=== PATIENT | female | born 1960 | race Caucasian/White ===

== ENCOUNTER → 2020-10-07 | Outpatient (CLI) | payer MEDICARE ==
--- NOTE | 2020-10-07 10:38 | XR ---
EXAMINATION TYPE: XR chest 2V DATE OF EXAM: 10/07/2020 COMPARISON: NONE HISTORY: Hypotension and shortness of breath. TECHNIQUE: Frontal and lateral views of the chest are obtained. FINDINGS: There is no focal air space opacity, pleural effusion, or pneumothorax seen. The cardiac silhouette size is within normal limits with atherosclerotic change in the aortic knob. The osseous structures are intact. Cholecystectomy clips noted on lateral view. IMPRESSION: No acute cardiopulmonary process.
== END | disposition home or self-care (01) ==
LOC: RADXRMAIN 10:21
PROVIDERS: ATTEND Family Medicine
DX: R06.09 Other forms of dyspnea (principal)
CPT/HCPCS: 71046

== ENCOUNTER → 2020-11-22 | Outpatient (CLI) | payer MEDICARE ==
--- NOTE | 2020-11-22 19:05 | ECHOF ---
Referral Reason:I10 Hypertension MEASUREMENTS -------- HEIGHT: 160.0 cm WEIGHT: 81.6 kg BP: RVIDd: 3.3 cm (< 3.3) IVSd: 1.7 cm (0.6 - 1.1) LVIDd: 3.8 cm (3.9 - 5.3) LVPWd: 1.7 cm (0.6 - 1.1) IVSs: 1.9 cm LVIDs: 2.6 cm LVPWs: 1.5 cm LAESV Index (A-L): 17.49 ml/m Ao Diam: 2.7 cm (2.0 - 3.7) AV Cusp: 1.7 cm (1.5 - 2.6) LA Diam: 4.2 cm (2.7 - 3.8) MV E Mikey: 0.78 m/s MV DecT: 237 ms MV A Mikey: 1.08 m/s MV E/A Ratio: 0.72 FINDINGS -------- Sinus rhythm. This was a technically adequate study. The left ventricular size is normal. There is severe concentric left ventricular hypertrophy. Ove rall left ventricular systolic function is normal with, an EF between 55 - 60 %. The diastolic fill ing pattern is normal for the age of the patient 16.22. The right ventricle is mildly enlarged. Normal LA size by volume 22+/-6 ml/m2. The right atrial size is normal. Interatrial and interventricular septum intact. The aortic valve is trileaflet and appears structurally normal. There is mild aortic regurgitation. The mitral valve is normal. There is trace to mild mitral regurgitation. The tricuspid valve appears structurally normal. Mild tricuspid regurgitation present. Unable to estimate RVSP due to inadequate TR jet spectral doppler profile. There is no pulmonic regurgitation present. The aortic root size is normal. IVC Not well visulized. There is no pericardial effusion. CONCLUSIONS -------- 1. There is severe concentric left ventricular hypertrophy. 2. Overall left ventricular systolic function is normal with, an EF between 55 - 60 %. 3. The right ventricle is mildly enlarged. 4. Normal LA size by volume 22+/-6 ml/m2. 5. There is mild aortic regurgitation. 6. There is trace to mild mitral regurgitation. 7. Mild tricuspid regurgitation present. 8. There is no pericardial effusion. DIESEL TRACTOR OPERATOR: Joyce Hernández RDCS
== END ==
LOC: RADECHMAIN 13:45
PROVIDERS: ATTEND Family Medicine
DX: I08.3 Combined rheumatic disorders of mitral, aortic and tricuspid valves (principal)
CPT/HCPCS: 93306

== ENCOUNTER → 2021-04-27 | Outpatient (CLI) | payer BC ==
[2021-04-27 16:38] LABS: HCT 37.6 % (34.0-46.0); HGB 12.9 gm/dL (11.4-16.0); MCH 32.3 pg (25.0-35.0); MCHC 34.2 g/dL (31.0-37.0); MCV 94.4 fL (80.0-100.0); Mean Platelet Volume 7.7; Platelet Count 241 k/uL (150-450); RBC 3.99 m/uL (3.80-5.40); RDW 14.2 % (11.5-15.5); WBC 8.9 k/uL (3.8-10.6)
[2021-04-27 16:46] LABS: Potassium 3.7 mmol/L (3.5-5.1)
== END | disposition home or self-care (01) ==
LOC: LABPAT 15:21
PROVIDERS: ATTEND Internal Medicine Clinical Cardiac Electrophysiology
DX: Z01.812 Encounter for preprocedural laboratory examination (principal); I42.2 Other hypertrophic cardiomyopathy
CPT/HCPCS: 80051; 82565; 84520; 85027

== ENCOUNTER 2021-05-04 13:57 | Day surgery (SDC) | payer MEDICARE ==
[2021-05-01 14:57] VITALS: BMI 30.1
[~2021-05-04 13:57] MED LIST: HYDROmorphone 0.5 MG/0.5 ML SYRINGE IVP PRN; MIDAZOLAM 2 MG/2 ML VIAL IV PRN
[2021-05-04] MEDS: SODIUM CHLORIDE 0.9% 1,000 ML IV SCH ×2 (14:21→18:15)
[2021-05-04] MEDS ORDERED: MIDAZOLAM 2 MG/2 ML VIAL ONE (15:38)
[2021-05-04] MEDS ORDERED: FUROSEMIDE 10 MG/ML 10 ML VIAL ONE (15:38)
[2021-05-04] MEDS ORDERED: PROPOFOL 10 MG/ML 20 ML VIAL IV ONE (15:38)
[2021-05-04] MEDS ORDERED: fentaNYL (PF) 50 MCG/ML 2 ML AMP ONE (15:38)
[2021-05-04] MEDS ORDERED: ACETAMINOPHEN TAB 325 MG TAB PO PRN (15:54)
[2021-05-04] MEDS ORDERED: HYDROcodone/APAP 5-325MG 1 EACH TAB PO PRN (15:54)
[2021-05-04] MEDS ORDERED: IOPAMIDOL-370 50ML BTL INJ ONE (15:55)
[2021-05-04] MEDS: ceFAZolin 1 GM in SODIUM CHLORIDE 0.9% 250 ML IRRIGATION PRN ×2 (15:58→16:00)
[2021-05-04] MEDS ORDERED: LIDOCAINE 1% INJ 10MG/ML (20 ML MDV) ONE ×2 (16:02)
[2021-05-04] MEDS ORDERED: LIDOCAINE 1% INJ 10MG/ML (20 ML MDV) SQ ONE (16:22)
[2021-05-04] MEDS ORDERED: ACETAMINOPHEN IV (For NPO) 1,000 MG in EMPTY BAG 1 BAG IVPB ONE (17:00)
--- NOTE | 2021-05-04 17:59 | P.PRLE ---
RE: Piper Basilio Dear René Saldaña underwent dual-chamber ICD implantation for risk of sudden cardiac . As you know she has hypertrophic cardio myopathy and based upon the lizett den of the scalp later her risk of fluids at around 5.2% I have discontinued amlodipine and have increased the dose of Toprol-XL to 100 mg by mouth daily She will continue lisinopril as before She'll continue to follow with you and Dr. Low as before Thank you for entrusting me with the care of the patient Warm regards Sincerely Irving Clark
--- NOTE | 2021-05-04 18:08 | P.PCN ---
Preoperative Diagnosis: Left upper extremity venogram 10 mL IV dye injection the left arm Patent left axillary and subclavian venous system Plan Proceed with dual-chamber ICD implantation Patient has HCM, sudden risk 5.2%
[2021-05-04] MEDS: LACTATED RINGERS 1,000 ML IV SCH (18:13)
--- NOTE | 2021-05-04 18:22 | CE ---
CARDIAC ELECTROPHYSIOLOGY REPORT Piper Basilio is a [address] Low who was referred for evaluation and management of hypertrophic cardiomyopathy and with risk of sudden . A dual- chamber ICD was advised. Sudden risk 5.2%. Patient is brought to the EP lab in a fasting state. Written informed consent was obtained prior to the procedure. The left shoulder area was prepped and draped as per protocol. 1% lidocaine was used for local anesthesia. A 4 cm incision was made parallel to the deltopectoral groove, about 1.5 cm medial to it. Incision was carried down to the level of the pectoralis muscle. A subfascial pocket was made. Hemostasis was assured. The left axillary vein was accessed at 2 separate points at the extra thoracic level. Two sheaths were positioned in the vein and 2 leads were positioned the right heart. The atrial lead was a 52 cm Medtronic model #5076 serial number [id number]. This was screwed in the right atrial appendage. P waves 2.0 mV, pacing impedance 532 ohms, pacing threshold 0.75 V at 0.4 milliseconds. 10 V test negative. The ICD lead was positioned in the mid RV septum. R-waves 5.7 mV, pacing impedance 456 ohms and pacing threshold 1.25 V at 0.4 milliseconds, which improved to 0.5 V at 0.4 milliseconds by the end of the procedure, 10 V test negative. Both leads were secured to the underlying pectoralis fascia using 2 nonabsorbable sutures. Pocket was irrigated with antibiotic solution. Leads were connected to the generator ([employer] [place] XT DI MRI model number AMY38F2 serial number [id number]). The atrial lead was serial number [id number]. The ICD lead was 62 cm, model #6935 M and serial number [id number]. The leads and the generator were then placed in subfascial pocket. The wound was closed in 3 layers and dressed per protocol. The device was then programmed to AAIR to DDDR. With an MVP on. VT zone 176 beats per minute, VF zone 214 beats per minute. Appropriate antitachycardia pacing cardioversion defibrillation was programmed. DFT was deferred at this point and will be performed after about 3 months after maximal beta jenise therapy and lead maturation. RESULTS: Successful dual-chamber ICD implantation for an 8 cm with elevated risk of sudden cardiac . MMODL / IJN: [id number] /
--- NOTE | 2021-05-04 20:21 | XR ---
EXAMINATION TYPE: XR chest 1V portable DATE OF EXAM: 05/04/2021 COMPARISON: Chest x-ray October 07, 2020 HISTORY: Arrhythmia, status post pacemaker insertion TECHNIQUE: Single AP portable frontal upright view of the chest is obtained. FINDINGS: There is mild chronic parenchymal change without suspicious new focal air space opacity, p leural effusion, or pneumothorax seen. The cardiac silhouette size remains enlarged with atheroscler otic aorta. New dual-lead pacemaker/defibrillator has leads projecting over the right atrium and rig ht ventricle. The osseous structures are intact. Overlying EKG leads currently. IMPRESSION: As above.
[2021-05-04] MEDS: FAMOTIDINE 20 MG TAB PO SCH (20:30)
[2021-05-04] MEDS ORDERED: TOPIRAMATE 25 MG TAB PO SCH (21:00)
[2021-05-04] MEDS ORDERED: hydrOXYzine HCL 25 MG TAB PO PRN (21:00)
[2021-05-05] MEDS: SODIUM CHLORIDE 0.9% 1,000 ML IV SCH ×2 (02:35→02:38)
[2021-05-05] MEDS: FAMOTIDINE 20 MG TAB PO SCH (07:13)
[2021-05-05] MEDS: LACTATED RINGERS 1,000 ML IV SCH (07:13)
[2021-05-05 07:18] VITALS: BP 128/74; PULSE 66; RESP 16; TEMP 97.7
[2021-05-05] MEDS ORDERED: METOPROLOL SUCCINATE (ER) 100 MG TAB.ER.24H PO SCH (09:00)
[2021-05-05] MEDS ORDERED: busPIRone HCl 5 MG TAB PO SCH (09:00)
[2021-05-05] MEDS ORDERED: VENLAFAXINE HCL ER 150 MG CAP PO SCH (09:00)
[2021-05-05] MEDS ORDERED: lisinopriL 20 MG TAB PO SCH (09:00)
[2021-05-05] MEDS ORDERED: ATORVASTATIN 20 MG TAB PO SCH (09:00)
== END 2021-05-05 10:31 | disposition home or self-care (01) ==
LOC: CATHEP 13:57 → 6NMEDSUR 17:51 → CATHEP 05-05 10:31
PROVIDERS: ATTEND Internal Medicine Clinical Cardiac Electrophysiology
DX: I49.9 Cardiac arrhythmia, unspecified (principal); Z95.0 Presence of cardiac pacemaker
CPT/HCPCS: 33230; 71045; C1769 ×2; C1892 ×2; J2250; J1940; J0690 ×2; J2001; J3010; J0131; J2704; Q9967

== ENCOUNTER 2021-06-23 09:56 | Day surgery (SDC) | payer MEDICARE ==
[2021-06-20 15:52] VITALS: BMI 29.9
[~2021-06-23 09:56] MED LIST changes: -HYDROmorphone 0.5 MG/0.5 ML SYRINGE IVP PRN; +LACTATED RINGERS 1,000 ML IV SCH; -MIDAZOLAM 2 MG/2 ML VIAL IV PRN
[2021-06-23 10:32] VITALS: TEMP 96.8
[2021-06-23] MEDS ORDERED: PROPOFOL 10 MG/ML 20 ML VIAL IV ONE (11:39)
--- NOTE | 2021-06-23 11:58 | P.PCN ---
Date of Procedure: 06/23/21 Procedure(s) Performed: BRIEF HISTORY: Patient is a 60-year-old pleasant White female scheduled for an elective colonoscopy as a part of a value should of intermittent diarrhea with small amount of blood or mucus in the stools for the last 1 year duration. PROCEDURE PERFORMED: Colonoscopy with biopsy. PREOPERATIVE DIAGNOSIS: Diarrhea with blood or mucus in the stool of 1 year duration. IV sedation per Anesthesia. PROCEDURE: After informed consent was obtained, the patient, was brought into the endoscopy unit. IV sedation was administered by Anesthesia under continuous monitoring. Digital rectal examination was normal. Initially the Olympus CF-160 flexible video colonoscope was then inserted in the rectum, gradually advanced into the cecum without any difficulty. Careful examination was performed as the scope was gradually being withdrawn. Ileocecal valve and the appendiceal orifice were visualized and appeared normal. Prep was excellent. Mucosa of the cecum appeared normal. In the ascending colon there was a 3-4 minute a polyp that was removed by cold biopsy. Rest of the, ascending colon, transverse colon, descending colon, sigmoid colon, and rectum appeared normal. In the mid rectum there was patchy colitis extending from 8-10 cm from the anal verge with mucosal erythema friability and granularity suspicious for colitis and multiple biopsies were done from this area. The distal rectal normal Retroflexion was performed in the rectum and no lesions were seen. The patient tolerated the procedure well. IMPRESSION: Mild patchy colitis involving the mid rectum extending from 8-10 cm from the anal verge with mucosal erythema friability and some granularity suspicious for colitis status post multiple biopsies 3 mm ascending colon polyp status post cold biopsy RECOMMENDATIONS: Findings of this examination were discussed with the patient as well as a family. She was advised to follow with the biopsy results. She'll be seen in office in one week..
[2021-06-23 12:01] VITALS: RESP 16
[2021-06-23 12:24] VITALS: BP 109/67; PULSE 79
== END 2021-06-23 12:52 | disposition home or self-care (01) ==
LOC: ORWHC2ENDO 09:56
PROVIDERS: ATTEND Internal Medicine Gastroenterology
DX: D12.2 Benign neoplasm of ascending colon (principal); K52.9 Noninfective gastroenteritis and colitis, unspecified; K21.9 Gastro-esophageal reflux disease without esophagitis; I25.5 Ischemic cardiomyopathy; I10 Essential (primary) hypertension; G47.33 Obstructive sleep apnea (adult) (pediatric); Z95.810 Presence of automatic (implantable) cardiac defibrillator; F41.9 Anxiety disorder, unspecified; F32.9 Major depressive disorder, single episode, unspecified; Z98.890 Other specified postprocedural states; Z79.899 Other long term (current) drug therapy; Z88.2 Allergy status to sulfonamides
CPT/HCPCS: 45380; 88305; J2704

== ENCOUNTER 2021-07-03 08:11 | Day surgery (SDC) | payer MEDICARE ==
[2021-06-29 18:12] VITALS: BMI 29.5
[~2021-07-03 08:11] MED LIST changes: -LACTATED RINGERS 1,000 ML IV SCH; +SODIUM CHLORIDE 0.9% 1,000 ML IV SCH
[2021-07-03 08:58] VITALS: TEMP 98.1
[2021-07-03] MEDS ORDERED: SODIUM CHLORIDE 0.9% 500 ML 500 ML IV ONE (08:58)
[2021-07-03 09:21] LABS: Calcium 9.2 mg/dL (8.4-10.2)
[2021-07-03] MEDS ORDERED: PROPOFOL 10 MG/ML 20 ML VIAL IV ONE (09:25)
[2021-07-03 09:34] LABS: Potassium 4.4 mmol/L (3.5-5.1)
--- NOTE | 2021-07-03 10:44 | P.EPPROC ---
- EP Procedure Note Electrophysiology Procedure Note: Procedure Cinefluoroscopy of the leads Dual-chamber ICD interrogation with reprogramming DFT testing and anesthesia Procedure Cinefluoroscopy of the leads was performed No dislodgment no fractures or breaks noted Atrial lead malposition in the right atrial appendage Single coil ICD lead in the RV septum DFT testing was performed Shock and T wave protocol was used to induce ventricular fibrillation Polymorphic fast VT was induced, appropriately detected at least sensitivity and successfully internally defibrillated with 10 J shock The charge time was 1.9 seconds Shocking impedance 61 ohms No post shock noise The device was then reprogrammed First cardioversion at 10 J First defibrillation at 20 J Appropriate antitachycardia pacing cardioversion and defibrillation programmed Sensitivity was reprogrammed to normal settings Atrial pacing impedance 513 ohms, P waves 2.9 mV, pacing threshold 1.4 V at 0.4 ms RV pacing impedance 513 ohms, high-voltage impedance 63 ohms, pacing threshold 1.3 V at 0.4 ms, R waves 6.1 mV Impression Normal fluoroscopy of dual-chamber ICD DFT at a below 10 J ICD interrogated and reprogrammed and functioning normally
[2021-07-03 11:19] VITALS: PULSE 60; RESP 16
[2021-07-03 11:20] VITALS: BP 135/63
== END 2021-07-03 11:47 | disposition home or self-care (01) ==
LOC: CATHEP 08:11
PROVIDERS: ATTEND Internal Medicine Clinical Cardiac Electrophysiology
DX: I51.7 Cardiomegaly (principal); I10 Essential (primary) hypertension; E78.5 Hyperlipidemia, unspecified; Z95.810 Presence of automatic (implantable) cardiac defibrillator; F41.9 Anxiety disorder, unspecified; F32.9 Major depressive disorder, single episode, unspecified; Z82.49 Family history of ischemic heart disease and other diseases of the circulatory system; Z20.822 Contact with and (suspected) exposure to COVID-19
CPT/HCPCS: 93642; 80048; 87635; J2704

== ENCOUNTER → 2021-11-28 | Outpatient (CLI) | payer MEDICARE ==
--- NOTE | 2021-12-12 10:31 | MM ---
Reason for exam: screening (asymptomatic). Last mammogram was performed 3 years and 3 months ago. History: Benign US right guided mammotome of the right breast, May 15, 2006. Physical Findings: A clinical breast exam by your physician is recommended on an annual basis and results should be correlated with mammographic findings. MG 3D Screening Mammo W/Cad Bilateral CC and MLO view(s) were taken. Prior study comparison: August 28, 2018, right breast mammogram, performed at [place]. August 15, 2018, bilateral mammogram, performed at [place]. September 27, 2011, bilateral digital screening mammo w/CAD. December 07, 2009, bilateral digital screening mammogram. The breast tissue is heterogeneously dense. This may lower the sensitivity of mammography. There are benign appearing round calcifications bilaterally. Previous mammotome biopsy in the right breast. There is no discrete abnormality. Left axillary pacemaker. ASSESSMENT: Benign, BI-RAD 2 RECOMMENDATION: Routine screening mammogram of both breasts in 1 year.
== END | disposition home or self-care (01) ==
LOC: RADMAMWWP 13:18
PROVIDERS: ATTEND Family Medicine
DX: Z12.31 Encounter for screening mammogram for malignant neoplasm of breast (principal)
CPT/HCPCS: 77063; 77067

== ENCOUNTER → 2022-01-09 | Outpatient (CLI) | payer MEDICARE ==
[2022-01-09 16:55] LABS: Appearance,Urine Cloudy (Clear); Bacteria,Urine Rare /hpf; Bilirubin,Urine Negative (Negative); Blood,Urine Negative (Negative); Color,Urine Yellow; Glucose,Urine (UA) Negative (Negative); Hyaline Casts,Urine 10 /lpf (0-2); Ketones,Urine Negative (Negative); Leukocyte Esterase,Urine Large (Negative); Mucus,Urine Few /hpf; Nitrite,Urine Negative (Negative); PH, Urine 5.5 (5.0-8.0); Protein,Urine Trace (Negative); RBC,Urine 7 /hpf (0-5); Specific Gravity,Urine 1.024 (1.001-1.035); Squamous Epithelial Cell,Urine 7 /hpf (0-4); Urobilinogen,Urine <2.0 mg/dL (<2.0); WBC,Urine 41 /hpf (0-5)
[2022-01-10 00:57] LABS: HCT 42.4 % (37.2-46.3); HGB 13.6 g/dL (12.0-15.0); MCH 30.8 pg (27.0-32.0); MCHC 32.1 g/dL (32.0-37.0); MCV 96.1 fL (80.0-97.0); Mean Platelet Volume 11.5 fL (9.5-12.2); NRBC Per 100 WBC 0 /100 WBCS (0.0-0.0); Platelet Count 216 X 10*3/uL (140-440); RBC 4.41 X 10*6/uL (4.10-5.20); RDW 14.6 % (11.5-14.5); WBC 6.87 X 10*3/uL (4.50-10.00)
[2022-01-10 01:36] LABS: BUN/Creat Ratio 18.46 Ratio (12.00-20.00); Chol/HDL Ratio 3.77 Ratio; LDL Cholesterol,Calculated 101.9 mg/dL (0.0-131.0)
[2022-01-10 01:37] LABS: ALT 21 U/L (8-44); AST 22 U/L (13-35); African American GFR (CKD) 66.2 (60.0-200.0); Blood Urea Nitrogen 19.2 mg/dL (9.0-27.0); Calcium 9.4 mg/dL (8.7-10.3); Carbon Dioxide 21.4 mmol/L (20.0-27.5); Chloride 107 mmol/L (96-109); Glucose 90 mg/dL (70-110); Non-African American GFR(CKD) 57.1 (60.0-200.0); Potassium 4.3 mmol/L (3.5-5.5); Sodium 142 mmol/L (135-145)
== END | disposition home or self-care (01) ==
LOC: LABWHC1 14:10
PROVIDERS: ATTEND Family Medicine
DX: I10 Essential (primary) hypertension (principal); E66.3 Overweight
CPT/HCPCS: 36415; 80048; 80061; 81001; 82306; 83036; 84443; 84450; 84460; 85027; 87086

== ENCOUNTER → 2022-02-23 | Outpatient (CLI) | payer MEDICARE ==
[2022-02-23 19:14] LABS: African American GFR (CKD) 61.9 (60.0-200.0); Anion Gap 12.4 mmol/L (10.00-18.00); BUN/Creat Ratio 17.36 Ratio (12.00-20.00); Blood Urea Nitrogen 19.1 mg/dL (9.0-27.0); Calcium 9.1 mg/dL (8.7-10.3); Carbon Dioxide 21.6 mmol/L (20.0-27.5); Non-African American GFR(CKD) 53.4 (60.0-200.0)
[2022-02-23 20:23] LABS: Appearance,Urine Cloudy (Clear); Bilirubin,Urine Negative (Negative); Blood,Urine Negative (Negative); Color,Urine Yellow (Yellow); Ketones,Urine Trace mg/dL (Negative); Nitrite,Urine Negative (Negative); PH, Urine 5.5 (5.0-8.0); Specific Gravity,Urine 1.022 (1.001-1.030); Urobilinogen,Urine 0.2 (0.2,1.0)
[2022-02-23 20:41] LABS: Bacteria,Urine 2+ /HPF (None Seen)
== END | disposition home or self-care (01) ==
LOC: LABWHC1 09:42
PROVIDERS: ATTEND Family Medicine
DX: I10 Essential (primary) hypertension (principal); E78.5 Hyperlipidemia, unspecified; R89.9 Unspecified abnormal finding in specimens from other organs, systems and tissues
CPT/HCPCS: 36415; 80048; 81001; 83036

== ENCOUNTER → 2022-05-17 | Outpatient (CLI) | payer MEDICARE ==
--- NOTE | 2022-05-17 17:29 | US ---
EXAMINATION TYPE: US kidneys/renal and bladder DATE OF EXAM: 05/17/2022 COMPARISON: NONE CLINICAL HISTORY: R94.4 ABNORMAL KIDNEY FUNCTION STUDIES. No abnormal labs. Hx renal stones. EXAM MEASUREMENTS: Right Kidney: 9.0 x 4.6 x 5.2 cm Left Kidney: 9.7 x 3.8 x 4.6 c Right Kidney: Mid renal echogenic focus = 0.7 cm Left Kidney: Multiple echogenic foci seen. Largest measured mid = 1.0 cm and upper pole = 0.9 cm Bladder: distended, anechoic Bilateral Jets seen IMPRESSION: Bilateral nonobstructing renal calculi. No evidence of obstructive uropathy.
== END | disposition home or self-care (01) ==
LOC: RADUSWWP 16:23
PROVIDERS: ATTEND Family Medicine
DX: N20.0 Calculus of kidney (principal)
CPT/HCPCS: 76770

== ENCOUNTER → 2023-01-17 | Outpatient (CLI) | payer MEDICARE ==
--- NOTE | 2023-01-18 12:26 | MM ---
Reason for Exam: Screening (asymptomatic). Last mammogram was performed 1 year(s) and 2 month(s) ago. Patient History: Menarche at age 11. First Full-Term at age 22. Postmenopausal. 05/15/2006, Benign Core Biopsy on the right side. Risk Values: Kandice 5 year model risk: 1.7%. NCI Lifetime model risk: 6.9%. Prior Study Comparison: 08/15/2018 Bilateral Screening Mammogram, [place]. 08/28/2018 Right Screening Mammogram, [place]. 11/28/2021 Bilateral Screening Mammogram, [facility]. Tissue Density: There are scattered fibroglandular densities. Findings: Analyzed By CAD. There increasing circumscribed isodense to low density nodularity in the left breast measuring up to 9 mm. Probable underlying cysts. Further ultrasound evaluation recommended. Otherwise, no significant change. Overall Assessment: Incomplete: need additional imaging evaluation, BI-RAD 0 Management: Diagnostic Breast Ultrasound of the left breast. For new and increasing nodularity measuring up to 9 mm. Suspect underlying cysts.[facility] will attempt to contact patient to return for supplemental views and ultrasound if indicated. Electronically signed and approved by: Bertha Watters M.D. Radiologist
== END | disposition home or self-care (01) ==
LOC: RADMAMWWP 15:00
PROVIDERS: ATTEND Family Medicine
DX: Z12.31 Encounter for screening mammogram for malignant neoplasm of breast (principal); Z78.0 Asymptomatic menopausal state
CPT/HCPCS: 77063; 77067

== ENCOUNTER → 2023-02-05 | Outpatient (CLI) | payer MEDICARE ==
--- NOTE | 2023-02-05 11:21 | USB ---
Reason for Exam: Additional evaluation requested from abnormal screening. Patient History: Menarche at age 11. First Full-Term at age 22. Postmenopausal. 05/15/2006, Benign Core Biopsy on the right side. Risk Values: Kandice 5 year model risk: 1.7%. NCI Lifetime model risk: 6.9%. Technique: Method: Targeted. Prior Study Comparison: 08/28/2018 Right Screening Mammogram, [place]. 11/28/2021 Bilateral Screening Mammogram, [facility]. 01/17/2023 Bilateral MG 3D screening mammo w/cad, [facility]. Findings: The upper outer quadrant of the left breast, the medial section of the breast of the left breast, the axilla of the left breast and the retroareolar of the left breast were scanned. Imaged: Ultrasound imaging of: All 4 quadrants, the retroareolar region and axilla. Multiple anechoic cysts are seen throughout the breast including: * 7 x 4 x 5 mm at 2:00 10 cm from the nipple. * 8 x 4 x 10 mm 4:00 10 cm from nipple. * 9 x 4 x 9 mm at 7:00 10 cm from nipple. Dilated ducts in the retroareolar region. No intraductal mass visualized. No suspicious masses. Overall Assessment: Benign, BI-RAD 2 Management: Screening Mammogram of both breasts in 1 year. Diagnostic Breast Ultrasound of the left breast in 1 year. Follow-up ultrasound for retroareolar dilated ducts in one year to ensure stability. A clinical breast exam by your physician is recommended on an annual basis and results should be correlated with mammographic findings. This exam should not preclude additional follow-up of suspicious palpable abnormalities. Results were given to the patient verbally at the time of exam. Electronically signed and approved by: Ollie Yang DO
== END | disposition home or self-care (01) ==
LOC: RADUSWWP 10:36
PROVIDERS: ATTEND Family Medicine
DX: N60.02 Solitary cyst of left breast (principal); Z78.0 Asymptomatic menopausal state

== ENCOUNTER → 2023-03-25 | Outpatient (CLI) | payer MEDICARE ==
--- NOTE | 2023-03-25 13:49 | XR ---
EXAMINATION TYPE: XR hand complete bilateral DATE OF EXAM: 03/25/2023 1:43 PM INDICATION: Patient age:Female; 62 years old; Reason for study: M19.042 M51.37 M19.041; [facility]. COMPARISON: None TECHNIQUE: Frontal, lateral and oblique views of the bilateral hands were obtained. FINDINGS: Normal alignment of the visualized joints. No acute osseous pathology is identified. No e vidence of soft tissue swelling. Multifocal osteophyte formation in joint space narrowing throughout the hand interphalangeal joints. Worse on the right at the first digit interphalangeal joint and four th digit distal interphalangeal joint and fifth digit proximal interphalangeal joint. On the left wor se at second digit proximal interphalangeal joint. IMPRESSION: 1. No acute osseous pathology. 2. Mild multifocal degeneration changes most pronounced in the interphalangeal joints.
--- NOTE | 2023-03-25 13:51 | XR ---
EXAMINATION TYPE: XR lumbosacral spine min 4V DATE OF EXAM: 03/25/2023 1:43 PM INDICATION: Patient age:Female; 62 years old; Reason for study: M19.042 M51.37 M19.041; [facility]. COMPARISON: None TECHNIQUE: Frontal, lateral , bilateral oblique and coned in L5-S1 lateral views of the spine. FINDINGS: No evidence of any acute osseous pathology. No evidence of loss of vertebral body height i s seen. There is normal alignment of the lumbar vertebral bodies. Mild scattered disc space narrowing . Multilevel marginal osteophyte formation throughout the visualized spine. There is facet joint arth ropathy throughout the spine. Scattered at least mild neural foraminal stenosis worse at L5-S1. IMPRESSION: 1. No acute fracture. 2. Moderate multilevel disc degeneration.
--- NOTE | 2023-03-25 15:03 | XR ---
EXAMINATION TYPE: XR Hip Complete RT DATE OF EXAM: 03/25/2023 1:43 PM INDICATION: Patient age:Female; 62 years old; Reason for study: M19.042 M51.37 M19.041; [facility]. COMPARISON: None. TECHNIQUE: The right hip was examined in the frontal and lateral projections FINDINGS: No evidence for acute process, joint dislocation or significant soft tissue swelling. Osteo phyte formation of the superior acetabulum of the hips. There is moderate joint space narrowing. IMPRESSION: 1. No evidence for acute process. 2. Moderate to severe right hip osteoarthrosis.
== END | disposition home or self-care (01) ==
LOC: RADXRMAIN 13:12
PROVIDERS: ATTEND Internal Medicine Rheumatology
DX: M51.37 Other intervertebral disc degeneration, lumbosacral region (principal); M19.041 Primary osteoarthritis, right hand; M19.042 Primary osteoarthritis, left hand
CPT/HCPCS: 72110; 73502

== ENCOUNTER → 2023-07-30 | Outpatient (CLI) | payer MEDICARE | END | disposition home or self-care (01) | LOC: LABPAT 11:19 | PROVIDERS: ATTEND Orthopaedic Surgery | DX: Z01.812 Encounter for preprocedural laboratory examination (principal); Z22.322 Carrier or suspected carrier of Methicillin resistant Staphylococcus aureus; M16.11 Unilateral primary osteoarthritis, right hip | CPT/HCPCS: 36415; 86850; 86900; 86901; 87070 ==

== ENCOUNTER 2023-08-05 10:23 | Day surgery (SDC) | payer MEDICARE ==
--- NOTE | 2023-08-04 12:49 | HP ---
HISTORY AND PHYSICAL DATE OF SURGERY: 08/05/2023. HISTORY OF PRESENT ILLNESS: Piper Basilio is a 62-year-old patient, who was seen with symptomatic right hip osteoarthritis. We discussed options regarding treatment. She elected to proceed with direct anterior right total hip arthroplasty. Consent regarding the procedure was obtained. Medical clearance was provided by Dr. Askew and Dr. Doyle. Cardiac clearance was provided by Dr. Low. PAST MEDICAL HISTORY: Hypertension, kidney disease, hypertrophic cardiomyopathy. PAST SURGICAL HISTORY: Appendectomy, , cholecystectomy, placement of defibrillator. DAILY MEDICATIONS: Atorvastatin, lisinopril, loratadine, metoprolol, Effexor. ALLERGIES: Sulfa. SOCIAL HISTORY: She denies tobacco use. PHYSICAL EVALUATION OF THE RIGHT HIP: She has limited range of motion. Diffuse tenderness. Positive hip impingement sign. Range of motion limited with severe pain. Straight-leg raise negative. Distal neurovascular exam is intact. IMAGING STUDIES: Right hip radiographs reveal severe osteoarthritic changes. IMPRESSION: 1. Right hip osteoarthritis. 2. Hypertension. 3. Hyperlipidemia. 4. Cardiovascular disease. PLAN: Direct anterior right total hip arthroplasty. MMODL / IJN: [id number] /
[~2023-08-05 10:23] MED LIST changes: +ACETAMINOPHEN TAB 500 MG TAB PO PRN; +DEXAMETHASONE SOD PHOSPHATE 4 MG/ML 1 ML VIAL IV ONE; +HYDROmorphone 0.5 MG/0.5 ML SYRINGE IVP PRN; +LACTATED RINGERS 1,000 ML IV SCH; +MELOXICAM 7.5 MG TAB PO PRN; +MIDAZOLAM 2 MG/2 ML VIAL IV PRN; +ONDANSETRON 4 MG/2 ML VIAL IVP ONE; +SCOPOLAMINE 1 MG/72 HR PATCH TRANSDERM ONE; -SODIUM CHLORIDE 0.9% 1,000 ML IV SCH; +TRANEXAMIC 1,000 MG/100ML-NACL 1,000 MG in SALINE 1 100ML.BAG IVPB PRN
[2023-08-05] MEDS ORDERED: MIDAZOLAM 2 MG/2 ML VIAL IVP ONE (11:29)
--- NOTE | 2023-08-05 11:46 | P.ANPRN ---
Procedure Note - Anesthesia - Nerve Block Performed Right Boby Single Time Out Performed: Yes Date of Procedure: 08/05/23 Procedure Start Time: : Procedure Stop Time: :34 Location of Patient: PreOp Indication: Acute Post-Operative Pain, Requested by Surgeon Sedation Type: Sedate with meaningful contact maintained Preparation: Sterile Prep Position: Supine Catheter: None Needle Types: Pajunk Needle Gauge: 21 Ultrasound used to visualize needle placement: Yes Ultrasound used to observe medication spread: Yes Injectate: 0.5% Ropivacaine (see comment for volume) (Ropi 10ml+NS10ml) Blood Aspirated: No Pain Paresthesia on Injection Noted: No Resistance on Injection: Normal Image Stored and Saved: Yes Events: Uneventful and Well Tolerated
[2023-08-05] MEDS ORDERED: ceFAZolin 1,000 MG in SODIUM CHLORIDE 0.9% 1,000 ML IRRIGATION ONE (13:35)
[2023-08-05] MEDS ORDERED: LACTATED RINGERS 1,000 ML IV ONE (14:22)
[2023-08-05] MEDS ORDERED: NALOXONE 0.4 MG/ML 1 ML VIAL IV PRN (14:23)
[2023-08-05] MEDS ORDERED: ONDANSETRON 4 MG/2 ML VIAL IVP PRN (14:23)
[2023-08-05] MEDS ORDERED: HYDROcodone/APAP 7.5-325MG 1 EACH TAB PO PRN (14:23)
[2023-08-05] MEDS ORDERED: HYDROcodone/APAP 5-325MG 1 EACH TAB PO PRN (14:23)
[2023-08-05] MEDS ORDERED: HYDROmorphone 0.5 MG/0.5 ML SYRINGE IVP PRN ×2 (14:23)
[2023-08-05] MEDS ORDERED: HYDROmorphone 1 MG/ML 1 ML SYRINGE IVP PRN (14:23)
--- NOTE | 2023-08-05 14:23 | P.OP ---
Date of Procedure: 08/05/23 Preoperative Diagnosis: Right hip osteoarthritis Postoperative Diagnosis: Right hip osteoarthritis Procedure(s) Performed: Direct anterior right total hip arthroplasty Implants: 1. Depuy Corail size 8 standard collar press-fit femoral stem 2. Depuy pinnacle 54 mm press-fit acetabular shell 3. Depuy pinnacle neutral polyethylene acetabular liner 36 mm ID 54 mm OD 4. Biolox delta ceramic femoral head +1.5 36 mm Anesthesia: GETA, regional (erector spinae block) Surgeon: Robert Jolley Manufacturer Representative #1: Wu Omer Estimated Blood Loss (ml): 65 Pathology: none sent Condition: stable Disposition: PACU Indications for Procedure: 62-year-old patient seen with symptomatic right hip osteoarthritis. After treatment options were discussed, she elected to proceed with direct anterior right total hip arthroplasty. Operative Findings: See description of procedure Description of Procedure: The patient was taken to the operative suite. Patient underwent a general anes thetic by the department of anesthesia. Patient was then transferred to the [facility] table. Patient was given preoperative IV antibiotics and TXA. Both lower extremities were placed in standard leg spars. The hip was then prepped and draped in the normal sterile orthopedic fashion. A standard anterior incision was made beginning 3 cm lateral and 1 cm distal to the ASIS extending 10 cm. Dissection was then carried down through the subcutaneous soft tissues down to the fascia overlying the tensor fascia debi. An incision was now made through the fascia. Careful dissection was taken down exposing the tensor fascia debi muscle. A Cobra retractor was now placed along the medial femoral neck and a second one along the lateral femoral neck. The venous circumflex vessels were now identified, cauterized and clipped. We identified the anterior hip capsule. An incision was made through the hip capsule along the lateral border. I performed a partial anterior capsulectomy. Retractors were now placed around the femoral neck itself. A femoral neck cut was now made with a sagittal saw. It was completed with an osteotome at the lateral neck area. The femoral head was now removed without difficulty. The extremity was now rotated to 60 of external rotation. It was locked in position. Residual labrum was now debrided out. Serial reaming was performed of the acetabulum while Daniel GARCIA assisted holding an anterior retractor for exposure. Once we reached the appropriate size and a trial was position and fit nicely. The appropriate size was now chosen opened and made available. It was introduced into the acetabulum without difficulty. The C-arm/fluoroscopy was now brought into the operative field. We made sure we had a true AP pelvic view. We now under direct C-arm /fluoroscopy introduced into the acetabular component with appropriate version and inclination. I held the cup in appropriate position well Daniel GARCIA used a mallet to seat the acetabular component. I noted the component now to be well seated and stable. Acetabular cup introduce her was removed. The C-arm was pulled back. An appropriate liner was introduced and clicked into position. It was felt to be stable. At this point retractors were removed. The extremity was now placed into 140 external rotation with no traction. The leg was now dropped to the ground and adducted. Appropriate retractors were now positioned along the proximal femur. We also placed our femoral look into position. Additional capsular releasing was performed to gain access to the proximal femur. We now used a box osteotome. A canal finder was now utilized. Serial broaching was now performed with the assistance of Daniel GARCIA tapping the broaches down with a mallet while held the broach in appropriate rotation and position. This was done until we reached the appropriate size with good overall rotational stability. Appropriate calcar planing was performed. A trial head/neck was placed into position. The hip was now reduced. The C- arm/fluoroscopy was brought back into the operative field. I obtained an AP pelvis which demonstrated adequate leg length alignment. The trial components appeared adequately sized positioned. The C-arm/fluoroscopy was pulled back. Retractors were repositioned and the hip was dislocated. The leg was again taken down to the ground and adducted. Appropriate retractors were repositioned as well as the femoral hook. All trial components were removed. The femoral implant was opened along with the femoral head. The femoral implant was introduced on the appropriate handle into our pre-broached area. I held the component position well Daniel GARCIA used a mallet to seat the femoral component. The femoral component was now noted to be well seated and stable.. The femoral head was introduced with good positioning and fixation noted. Retractors were now removed. The hip was now reduced. There appeared be good positioning of the hip confirmed on intraoperative fluoroscopy. Spot films were obtained to document this. A second gram of TXA was given. Bipolar cautery had been utilized intermittently through the procedure for hemostasis. The wound was irrigated copiously with pulse lavage mechanical irrigation. The fascia was repaired with Vicryl suture. The subcutaneous soft tissues were repaired in layers with Vicryl suture. The skin was approximated with pernio/Dermabond. Sterile dressings were applied. Patient was then awakened, transferred to a bed and taken to recovery in stable condition. Daniel GARCIA assisted with the complex procedure.
--- NOTE | 2023-08-05 15:06 | XR ---
EXAMINATION TYPE: XR Hip Limited RT DATE OF EXAM: 08/05/2023 CLINICAL HISTORY: Postoperative evaluation TECHNIQUE: Single portable view of the r hip was submitted. FINDINGS: Noted are changes of total hip arthroplasty with femoral and acetabular components appearin g well seated. Alignment is anatomic. Postsurgical soft tissue changes are evident. IMPRESSION: Satisfactory postoperative alignment
--- NOTE | 2023-08-05 16:43 | FL ---
Intraoperative/procedural fluoroscopic services were provided. Total fluoroscopy time is 9 seconds wi th a total of 2 submitted images to PACS. Please see the operative/procedural note for further detail s. DAP: 0.8657 mGym2 Gycm2
[2023-08-05] MEDS ORDERED: hydrOXYzine HCL 25 MG TAB PO PRN (17:44)
[2023-08-05] MEDS ORDERED: busPIRone HCl 5 MG TAB PO PRN (17:44)
[2023-08-05] MEDS ORDERED: ATORVASTATIN 20 MG TAB PO SCH (21:00)
[2023-08-05] MEDS ORDERED: METOPROLOL SUCCINATE (ER) 100 MG TAB.ER.24H PO SCH (21:00)
[2023-08-05] MEDS ORDERED: MELATONIN 5 MG TABLET PO SCH (21:00)
[2023-08-05] MEDS: LACTATED RINGERS 1,000 ML IV SCH (22:05)
[2023-08-06] MEDS: LACTATED RINGERS 1,000 ML IV SCH (03:34)
[2023-08-06] MEDS ORDERED: LORATADINE 10 MG TAB PO SCH (09:00)
[2023-08-06] MEDS ORDERED: lisinopriL 20 MG TAB PO SCH (09:00)
[2023-08-06] MEDS ORDERED: CHOLECALCIFEROL 25 MCG (1000 IU) TABLET PO SCH (09:00)
[2023-08-06] MEDS ORDERED: VENLAFAXINE HCL ER 75 MG CAP PO SCH (09:00)
[2023-08-06] MEDS ORDERED: ENOXAPARIN 40 MG/0.4 ML SYRINGE SQ SCH (09:00)
[2023-08-06 09:04] LABS: Basophils # (A) 0.01 X 10*3/uL (0.00-0.10); Basophils % (A) 0.1 %; Eosinophils # (A) 0 X 10*3/uL (0.04-0.35); Eosinophils % (A) 0 %; HGB 9.7 g/dL (12.0-15.0); Lymphocytes # (A) 1.35 X 10*3/uL (0.90-5.00); Lymphocytes % (A) 9.6 %; MCH 30.4 pg (27.0-32.0); MCHC 32.3 g/dL (32.0-37.0); Mean Platelet Volume 10.8 FL (9.5-12.2); Monocytes # (A) 0.81 X 10*3/uL (0.20-1.00); Monocytes % (A) 5.7 %; NRBC Per 100 WBC 0 X 10*3/uL (0.00-0.01); Neutrophils # (A) 11.85 X 10*3/uL (1.80-7.70); Neutrophils % (A) 84.1 %; Platelet Count 217 X 10*3/uL (140-440); RBC 3.19 X 10*6/uL (4.10-5.20); RDW 13.9 % (11.5-14.5); WBC 14.09 X 10*3/uL (4.50-10.00)
[2023-08-06] MEDS ORDERED: MULTIVITAMINS, THERA 1 EACH TAB PO SCH (12:00)
--- NOTE | 2023-08-06 12:20 | P.PN ---
Subjective Progress Note Date: 08/06/23 Principal diagnosis: Status post direct anterior right total hip arthroplasty Patient was evaluated at bedside today, she is resting in her hospital bed. She appears very comfortable, pain is well-controlled. She is eager to work physical therapy. She denies headaches, lightheadedness, chest pain or shortness of breath Objective - Vital Signs Vital signs: Vital Signs Temp 97.7 F 08/06/23 07:01 Pulse 72 08/06/23 07:01 Resp 18 08/06/23 07:01 BP 92/55 08/06/23 07:01 Pulse Ox 96 08/06/23 07:01 FiO2 Intake & Output 08/05/23 08/06/23 08/06/23 18:59 06:59 18:59 Intake Total 1281 Output Total 65 Balance 1216 Weight 80.7 kg Intake: IV 801 Oral 480 Output: Estimated Blood Loss 65 Other: Voiding Method Toilet # Voids 0 1 - Exam Right lower extreme: Incision is clean, dry, and intact. The foam dressing in good condition. There is minimal soft tissue swelling and ecchymosis surrounding the medial and lateral aspects of the incision. Calf is soft, no tenderness with palpation. Plantar flexion, dorsiflexion, EHL, FHL are intact. Sensory exam to light touch throughout the extremity is intact, dorsal pedis pulses 2+. - Labs CBC & Chem 7: 08/06/23 05:05 Labs: Abnormal Lab Results - Last 24 Hours (Table) 08/06/23 Range/Units 05:05 WBC 14.09 H (4.50-10.00) X 10*3/uL RBC 3.19 L (4.10-5.20) X 10*6/uL Hgb 9.7 L (12.0-15.0) g/dL Hct 30.0 L (37.2-46.3) % Neutrophils # 11.85 H (1.80-7.70) X 10*3/uL Eosinophils # 0 L (0.04-0.35) X 10*3/uL Assessment and Plan Assessment: Postoperative day #1 status post direct anterior right total hip arthroplasty Plan: Pain control, continue supportive oral medications DVT prophylaxis, continue subcu medication during hospital stay Weight-bear as tolerated with walker PT/OT evaluation Wound care instructions were discussed, this including icing and elevating along showering Current incentive spirometer Medical recommendations Discharge planning: Patient will possibly be discharged to home with home care today, patient does have history of chronic kidney disease waiting a metabolic profile and how she does with physical therapy. We'll reassess later today Time with Patient: Less than 30
[2023-08-06 13:39] LABS: ALT 41 U/L (4-34); AST 55 U/L (14-36); African American GFR (CKD) 29 (>60 ml/min/1.73 sqM); Albumin 3.3 g/dL (3.5-5.0); Albumin/Globulin Ratio 1.2; Alkaline Phosphatase 79 U/L (38-126); Anion Gap 12 mmol/L; Blood Urea Nitrogen 46 mg/dL (7-17); Calcium 8.1 mg/dL (8.4-10.2); Carbon Dioxide 17 mmol/L (22-30); Chloride 110 mmol/L (98-107); Globulin 2.7 g/dL; Glucose 109 mg/dL (74-99); Non-African American GFR(CKD) 25 (>60 ml/min/1.73 sqM); Potassium 4.8 mmol/L (3.5-5.1); Sodium 139 mmol/L (137-145); Total Bilirubin 0.3 mg/dL (0.2-1.3)
--- NOTE | 2023-08-06 15:30 | P.CONS ---
History of Present Illness - Reason for Consult Consult date: 08/06/23 Medical management status post right total hip arthroplasty - History of Present Illness This is a pleasant 62-year-old female who was recently admitted under orthopedic service status post right total hip arthroplasty. Patient reports she follows with nephrology outpatient as she does have history of chronic kidney disease as well as Dr. Askew with past medical history of GERD, hyperlipidemia, hypertension, osteoarthritis, sleep apnea, supposed to use CPAP, cardiomyopathy, stage IIIB kidney disease, history of Crohn's with no current problems along with anxiety and depression. Patient denies illicit drug use was never a smoker and rarely drinks alcohol. Patient reports she did follow with primary care provider in the outpatient setting for presurgical clearance as well as nephrology. Patient has been up and working with physical therapy today doing relatively well and reports her pain is controlled. Patient with incentive spirometer at the bedside encouraged to continue using at least 10 times every hour while awake as well as taking home and using. Patient is awaiting follow-up labs from this a.m. to monitor kidney functions prior to discharge. Patient is eager to go home today. Review Of Systems: Constitutional: No fever, no chills, no night sweats. No weight change. No weakness, fatigue or lethargy. No daytime sleepiness. EENT: No headache. No blurred vision or double vision, no loss of vision. No loss of Hearing, no ringing in the ears, no dizziness. No nasal drainage or con gestion. No epistaxis. No sore throat. Lungs: No shortness of breath, cough, no sputum production. No wheezing. Cardiovascular: No chest pain, no lower extremity edema. No palpitations. No paroxysmal nocturnal dyspnea. No orthopnea. No lightheadedness or dizziness. No syncopal episodes. Abdominal: No abdominal pain. No nausea, vomiting. No diarrhea. No constipation. No bloody or tarry stools.. No loss of appetite. Genitourinary: No dysuria, increased frequency, urgency. No urinary retention. Musculoskeletal: No myalgias. No muscle weakness, no gait dysfunction, no frequent falls. No back pain. No neck pain. reports mild right hip discomfort status post surgery Integumentary: No wounds, no lesions. No rash or pruritus. No unusual bruising. No change in hair or nails. Neurologic: No aphasia. No facial droop. No change in mentation. No head injury. No headache. No paralysis. No paresthesia. Psychiatric: No depression. No anxiety. No mood swings. Endocrine: No abnormal blood sugars. No weight change. No excessive sweating or thirst. No cold intolerance. PHYSICAL EXAMINATION: GENERAL: The patient is alert and oriented x4, Well developed, well nourished. Obese HEENT: Pupils are round and equally reacting to light. EOMI. no scleral icterus. No conjunctival pallor. Normocephalic, atraumatic. No pharyngeal erythema. No thyromegaly. CARDIOVASCULAR: S1 and S2 muffled PULMONARY: diminished breath sounds bilaterally with no wheezing or rhonchi noted. ABDOMEN: soft. Obese Nontender on exam. non-distended, normoactive bowel sounds. No palpable organomegaly. MUSCULOSKELETAL: No joint swelling or deformity. EXTREMITIES: No cyanosis, clubbing, or pedal edema. Right hip surgical site is dry and intact with no significant surrounding redness and minimal swelling noted NEUROLOGICAL: Gross neurological examination did not reveal any focal deficits. SKIN: No rashes. Assessment: Status post right total hip arthroplasty History of hypertension History of GERD Hyperlipidemia history History of sleep apnea, supposed use a CPAP History of cardiomyopathy Chronic kidney disease stage III B history History of Crohn's Anxiety/depression history Obesity with a BMI of 31.5 GI prophylaxis DVT prophylaxis Full code Plan: Recommend to continue with current medications and management per orthopedic services. patient has been up and working with physical therapy doing relatively well and plans on going home Patient with incentive spirometer at the bedside encouraged to continue using at least 10 times every hour while awake and take home and continue using Patient follows with nephrology outpatient and had to undergo surgical clearance for this surgery as kidney functions were elevated. Creatinine today is 2.04 and recommend outpatient follow-up with repeat labs Blood pressures on the lower side today and encourage the patient to continue holding lisinopril for the next few days and have repeat labs in 2-3 days with close outpatient follow-up with nephrology. Patient also instructed that if blood pressure becomes more elevated of 130/90 may resume lisinopril at half the dose equaling 10 mg and discuss further with nephrology. Would recommend patient not taking lisinopril given patient's kidney disease Patient is medically stable for discharge today and again has been instructed to follow-up with primary care provider as well as carpenter assistant installer this week. Thank you kindly for this consultation. We will continue to follow during hospitalization. The impression and plan of care has been dictated by Anu Rendon, nurse practitioner as directed. Dr. Dinesh MD I have performed a history and examination and MDM of this patient, discussed the same with the dictator, and agree with the dictator's assessment and plan as written ,documented as a scribe. Based on total visit time, I have performed more than 50% of the visit. Any additional findings or plans will be noted. 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 "Hereditary heart disease". Hx Skin Cancer. occasional GERD issues but better recently, Crohn's disease-no current problems, supposed to use CPAP, cardiomyopathy, STage 3b kidney disease History of Any Multi-Drug Resistant Organisms: MRSA Year Discovered:: 2008 MDRO Source:: back Past Surgical History: AICD, Appendectomy, Bowel Resection, Section, Cholecystectomy, Ear Surgery Additional Past Surgical History / Comment(s): Section X2, Ear Surgery X2, surgery for diverticulosis during C- Section, skin cancers removed Past Anesthesia/Blood Transfusion Reactions: No Reported Reaction Type of Cardiac Device: AICD Device Placement Date:: Confetti [employer] 05/04/21 Past Psychological History: Anxiety, Depression Smoking Status: Never smoker Past Alcohol Use History: Rare Past Drug Use History: None Reported - Past Family History Father Family Medical History: Cancer Medications and Allergies Home Medications Medication Instructions Recorded Confirmed Type Atorvastatin [Lipitor] 20 mg PO HS 05/01/21 08/05/23 History Venlafaxine HCl ER [Effexor XR] 225 mg PO DAILY 05/01/21 08/05/23 History busPIRone HCL 15 mg PO DAILY PRN 05/01/21 08/05/23 History hydrOXYzine HCL 25 mg PO TID PRN 05/01/21 08/05/23 History Metoprolol Succinate (ER) [Toprol 100 mg PO HS 06/20/21 08/05/23 History XL] Acetaminophen Tab [Tylenol] 650 mg PO HS 08/01/23 08/05/23 History Cholecalciferol [Vitamin D3 (25 50 mcg PO DAILY 08/01/23 08/05/23 History Mcg = 1000 Iu)] Elderberry Fruit [Elderberry] 350 mg PO DAILY 08/01/23 08/05/23 History Loratadine [Claritin] 10 mg PO DAILY 08/01/23 08/05/23 History Melatonin 5 mg PO HS 08/01/23 08/05/23 History Multivitamins, Thera [Multivitamin 1 tab PO DAILY 08/01/23 08/05/23 History (formulary)] Allergies Allergy/AdvReac Type Severity Reaction Status Date / Time Penicillins Allergy Itching,shayy Verified 08/05/23 10:51 h Sulfa (Sulfonamide Allergy Rash/Hives Verified 08/05/23 10:51 Antibiotics) Physical Exam Vitals: Vital Signs Temp Pulse Pulse Resp BP BP Pulse Ox 08/06/23 07:01 97.7 F 72 18 92/55 96 08/06/23 01:54 97.9 F 71 101/59 94 L 08/05/23 19:25 97.8 F 73 17 97/63 96 08/05/23 17:44 69 98/45 98 08/05/23 17:19 74 90/51 99 08/05/23 17:04 76 80/55 98 08/05/23 16:50 63 115/64 100 08/05/23 16:35 61 99/55 100 08/05/23 16:19 57 L 103/68 98 08/05/23 16:07 98.4 F 71 16 137/71 98 08/05/23 15:45 62 16 108/57 98 08/05/23 15:30 64 16 103/58 98 08/05/23 15:15 63 16 98/56 98 08/05/23 15:00 64 16 106/56 96 08/05/23 14:45 65 16 116/66 99 08/05/23 14:41 97.5 F L 68 16 127/58 99 08/05/23 11:42 68 16 106/58 99 08/05/23 11:20 97.0 F L 75 16 105/58 97 Intake and Output 08/05/23 08/06/23 08/06/23 22:59 06:59 14:59 Intake Total 630 Balance 630 Intake: IV 150 Oral 480 Other: Voiding Method Toilet # Voids 1 1 Weight 80.7 kg Results CBC & Chem 7: 08/06/23 05:05 08/06/23 05:05 Labs: Abnormal Lab Results - Last 24 Hours (Table) 08/06/23 Range/Units 05:05 WBC 14.09 H (4.50-10.00) X 10*3/uL RBC 3.19 L (4.10-5.20) X 10*6/uL Hgb 9.7 L (12.0-15.0) g/dL Hct 30.0 L (37.2-46.3) % Neutrophils # 11.85 H (1.80-7.70) X 10*3/uL Eosinophils # 0 L (0.04-0.35) X 10*3/uL
--- NOTE | 2023-08-06 15:38 | P.DS ---
Providers Date of admission: 08/05/2023 Expected date of discharge: 08/06/23 Attending physician: Robert Jolley Consults: 08/05/23 16:59 Consult Physician Routine Consulting Provider: Abdifatah Adhikari Consult Reason/Comments: medical managment Do you want consulting provider notified?: Yes Primary care physician: [facility] Course: Date of admission: 08/05/2023 Date of discharge: 08/06/2023 Admission diagnosis: Status post dorect anterior right total hip arthroplasty Discharge diagnosis: Same Attending physician: Dr. Jolley Surgical procedures: Direct anterior right total hip arthroplasty Brief history: Patient is a 62-year-old female with a history of progressive primary right hip osteoarthritis. At this point patient has failed conservative treatment measures and has opted to proceed with a elective direct anterior right total hip arthroplasty. Hospital course: Details of patient's surgery can be found in operative report. Patient tolerated the procedure well and was subsequently transported to orthopedic floor. Patient's orthopeidc and medical care was provided daily. Patient had daily laboratory tests performed for evaluation of overall blood counts. Patient had daily physical therapy to include strengthening range of motion as well as education with walker ambulation. Patient was treated with Lovenox for their postoperative DVT prophylaxis during their inpatient stay. Patient was noted to have a relatively uneventful postoperative course. Patient reported satisfactory pain control with oral pain medications by postoperative day 0. Patient showed satisfactory progress with physical therapy. Patient moved steadily through the program and had no difficulty meeting the goals by postoperative day 1. Given patient's otherwise satisfactory course and having met physical therapy goals, plan is to discharge patient home on postoperative day 1. Discharge condition/disposition: Patient will be discharged home in stable condition. Discharge medications: Instructions are given on resumption of patient's normal daily medications per primary care recommendation, in addition patient will be prescribed [place] 7.5mg/325mg, Senna-S, aspirin 81mg. Discharge instructions: 1. Wound care and infection precautions, keep incision dry and covered while showering, no lotions, creams, moisturizers. No soaking, tubs, pools, hottubs. Do not scrub over the incision. 2. Weight-bear as tolerated with walker / cane until follow-up. 3. Ice and elevate when necessary. Do not exceed 20 minutes per hour with ice pack. 4. Utilize compression sleeve until seen at first follow up appointment. 5. Visiting nursing care. 6. Home physical therapy. 7. Pain meds and anticoagulants per prescription. 8. Pain medication has potential to cause constipation. Increase oral fluid and fiber intake. Contact primary care provider if you have not had a bowel movement within 48 hours after discharge 9. No anti-inflammatory medication until discussed at first post operative visit, this including Motrin, Aleve, Mobic, Diclofenac 10. Follow up in office at 2 weeks postop with Daniel Omer PA-C/Anam Kim 11. Follow up with your primary care doctor 7-10 days after discharge. 12. Contact [facility] with any questions, . Procedures: Direct anterior right total hip arthroplasty Plan - Discharge Summary Discharge Rx Participant: Yes New Discharge Prescriptions: New Aspirin [Adult Low Dose Aspirin EC] 81 mg PO BID #60 tab HYDROcodone/APAP 7.5-325MG [[place] 7.5] 1 each PO Q6HR PRN #28 tab PRN Reason: Pain Sennosides/Docusate Sodium [Senna-S 8.6-50 mg Tablet] 2 each PO DAILY PRN #30 tablet PRN Reason: Constipation Continue Atorvastatin [Lipitor] 20 mg PO HS hydrOXYzine HCL 25 mg PO TID PRN PRN Reason: Anxiety Melatonin 5 mg PO HS Loratadine [Claritin] 10 mg PO DAILY Multivitamins, Thera [Multivitamin (formulary)] 1 tab PO DAILY Acetaminophen Tab [Tylenol] 650 mg PO HS busPIRone HCL 15 mg PO DAILY PRN PRN Reason: Anxiety Venlafaxine HCl ER [Effexor XR] 225 mg PO DAILY Metoprolol Succinate (ER) [Toprol XL] 100 mg PO HS Cholecalciferol [Vitamin D3 (25 Mcg = 1000 Iu)] 50 mcg PO DAILY Elderberry Fruit [Elderberry] 350 mg PO DAILY Discontinued lisinopriL 20 mg PO QAM Discharge Medication List Atorvastatin [Lipitor] 20 mg PO HS 05/01/21 [History] Venlafaxine HCl ER [Effexor XR] 225 mg PO DAILY 05/01/21 [History] busPIRone HCL 15 mg PO DAILY PRN 05/01/21 [History] hydrOXYzine HCL 25 mg PO TID PRN 05/01/21 [History] Metoprolol Succinate (ER) [Toprol XL] 100 mg PO HS 06/20/21 [History] Acetaminophen Tab [Tylenol] 650 mg PO HS 08/01/23 [History] Cholecalciferol [Vitamin D3 (25 Mcg = 1000 Iu)] 50 mcg PO DAILY 08/01/23 [History] Elderberry Fruit [Elderberry] 350 mg PO DAILY 08/01/23 [History] Loratadine [Claritin] 10 mg PO DAILY 08/01/23 [History] Melatonin 5 mg PO HS 08/01/23 [History] Multivitamins, Thera [Multivitamin (formulary)] 1 tab PO DAILY 08/01/23 [History] Aspirin [Adult Low Dose Aspirin EC] 81 mg PO BID #60 tab 08/06/23 [Rx] HYDROcodone/APAP 7.5-325MG [[place] 7.5] 1 each PO Q6HR PRN #28 tab 08/06/23 [Rx] Sennosides/Docusate Sodium [Senna-S 8.6-50 mg Tablet] 2 each PO DAILY PRN #30 tablet 08/06/23 [Rx] Follow up Appointment(s)/Referral(s): [facility],Equipment [NON-STAFF] - As Needed (walker) Wu Omer PAC [PHYSICIAN ELECTROTYPE CASTER] - 2 Weeks [facility] Visiting Nurse, [NON-STAFF] - As Needed Ambulatory/Diagnostic Orders: Basic Metabolic Panel [LAB.AMB] Time Frame: 3 Days, Location: None Selected Activity/Diet/Wound Care/Special Instructions: Orthopedic Discharge Instructions: 1. Wound care and infection precautions, keep incision dry and covered while showering, no lotions, creams, moisturizers. No soaking, pools, hot tubs. Do not scrub over incision. 2. Weight-bear as tolerated with walker / cane until follow-up. 3. Ice and elevate when necessary. Do not exceed 20 minutes per hour with ice pack. 4. Utilize compression sleeve until seen at first follow up appointment. 5. Pain meds and anticoagulants per prescription. 6. Pain medication has potential to cause constipation. Increase oral fluid and fiber intake. Contact primary care provider if you have not had a bowel movement within 48 hours after discharge. 7. No anti-inflammatory medication until discussed at first post operative visit, this including Motrin, Aleve, Mobic, Diclofenac. 8. Follow up in office at 2 weeks postop with Daniel Omer PA-C/Anam Alas PA-C 9. Follow up with your primary care doctor 7-10 days after discharge. 10. Contact [facility] with any questions, . Recommend repeat labs in the next 2-3 days to monitor kidney functions Continue to hold lisinopril for the next few days prior to repeat labs If blood pressure is becoming more elevated over 130/90 recommend starting with lisinopril 10 mg Recommend follow-up this next week with nephrology Discharge Disposition: HOME WITH HOME HEALTH SERVICES
[2023-08-06 15:41] VITALS: BP 92/56; PULSE 78; RESP 14; TEMP 97.5
== END 2023-08-06 18:23 | disposition home health service (06) ==
LOC: OR 10:23 → 4SSUR 14:41 → OR 08-06 18:23
PROVIDERS: ATTEND Orthopaedic Surgery
DX: M16.11 Unilateral primary osteoarthritis, right hip (principal); I10 Essential (primary) hypertension; E78.5 Hyperlipidemia, unspecified; I42.2 Other hypertrophic cardiomyopathy; Z01.810 Encounter for preprocedural cardiovascular examination; Z90.49 Acquired absence of other specified parts of digestive tract; Z88.2 Allergy status to sulfonamides
CPT/HCPCS: 97161; 97166; 64447; 80053; 85025; 73501 ×2; 27130; C1776; J2250; J1100; J0690 ×3; J2405; J1650

== ENCOUNTER → 2024-05-13 | Outpatient (CLI) | payer MEDICARE ==
--- NOTE | 2024-05-20 07:25 | MM ---
Reason for Exam: Screening (asymptomatic). Last mammogram was performed 1 year(s) and 3 month(s) ago. Patient History: Menarche at age 11. First Full-Term at age 22. Postmenopausal. 05/15/2006, Benign Core Biopsy on the right side. Risk Values: Kandice 5 year model risk: 1.8%. NCI Lifetime model risk: 6.6%. Prior Study Comparison: 08/28/2018 Right Screening Mammogram, [place]. 11/28/2021 Bilateral Screening Mammogram, [facility]. 01/17/2023 Bilateral MG 3D screening mammo w/cad, [facility]. Tissue Density: The breasts are heterogeneously dense, which may obscure small masses. Findings: Analyzed By CAD. Right breast: There is no suspicious group of microcalcifications or new suspicious mass. Left breast: There is no suspicious group of microcalcifications or new suspicious mass. Overall Assessment: Negative, BI-RAD 1 Management: Screening Mammogram of both breasts in [address] [facility] will attempt to contact patient to return for supplemental views and ultrasound if indicated. Patient should continue monthly self-breast exams. A clinical breast exam by your physician is recommended on an annual basis. This exam should not preclude additional follow-up of suspicious palpable abnormalities. Note on Kandice scores and lifetime risk: 1. A Kandice score greater than 3% is considered moderate risk. If this is the case, consider specialist referral to assess eligibility for a risk reducing agent. 2. If overall lifetime risk for the development of breast cancer is 20% or higher, the patient may qualify for future screening with alternating mammogram and breast MRI. Electronically signed and approved by: Ollie Yang DO
== END | disposition home or self-care (01) ==
LOC: RADMAMWWP 09:00
PROVIDERS: ATTEND Family Medicine
DX: Z12.31 Encounter for screening mammogram for malignant neoplasm of breast
CPT/HCPCS: 77063; 77067